=== PATIENT | male | born 2005 | race Caucasian/White ===

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

== ENCOUNTER 2024-10-26 13:03 | Emergency (ER) | payer BC ==
[~2024-10-26] VITALS: Ht 165.1 cm; Wt 68.0 kg
[2024-10-26] MEDS ORDERED: KETOROLAC TROMETHAMINE 30 MG VIAL ONE ×2 (13:59→17:26)
[2024-10-26] MEDS ORDERED: ONDANSETRON HCL 2 MG/ML VIAL IV SCH (13:59)
[2024-10-26] MEDS ORDERED: FAMOTIDINE/PF 20 MG/2 ML VIAL IV SCH (13:59)
[2024-10-26] MEDS ORDERED: ONDANSETRON HCL 2 MG/ML VIAL ONE ×2 (13:59→17:40)
[2024-10-26] MEDS ORDERED: KETOROLAC TROMETHAMINE 15 MG VIAL IU ONE (14:00)
[2024-10-26] MEDS ORDERED: DEXTROSE 5 % AND 0.9 % NACL 1,000 ML IV SCH (14:00)
[2024-10-26] MEDS ORDERED: FAMOTIDINE/PF 20 MG/2 ML VIAL ONE (14:00)
[2024-10-26] MEDS ORDERED: 0.9 % SODIUM CHLORIDE 1,000 ML IV SCH (14:00)
[2024-10-26 14:26] LABS: BASO % 0.4 % (0.1-1.2); EOS # 0.03 (0.04-0.54); EOS % 0.3 % (0.7-7.0); HEMATOCRIT 41.1 % (40.1-51.0); HEMOGLOBIN 14.2 g/dL (13.7-17.5); LYMPH # 0.56 (1.18-3.74); LYMPH % 5.1 % (19.3-53.1); MONO # 1.58 (0.24-0.82); NEUT # 8.57 (1.56-6.13); NEUT % 78.5 % (34.0-71.1); PLATELET COUNT 195 K/uL (163-369); RED BLOOD COUNT 5.07 M/uL (4.63-6.08); RED CELL DISTRIBUTION WIDTH 12.2 % (11.6-14.4)
[2024-10-26 14:34] LABS: ERYTHROCYTE SEDIMENTATION RATE 11 mm/hr (0-15); MONO % 14.5 % (4.7-12.5)
[2024-10-26 14:51] LABS: BILIRUBIN TOTAL 0.54 mg/dL (0.3-1.2); C-REACTIVE PROTEIN 6.21 MG/DL (0.00-0.29); CALCIUM 8.9 mg/dL (8.5-10.1); CREATININE SERUM 1.04 mg/dL (0.70-1.30); POTASSIUM 3.73 mEq/L (3.5-5.1)
[2024-10-26 15:28] LABS: COVID-19 AG NEGATIVE (NEGATIVE)
[2024-10-26 15:38] LABS: INFLUENZA A AG NEGATIVE (NEGATIVE); INFLUENZA B AG NEGATIVE (NEGATIVE)
[2024-10-26 16:48] LABS: URINE APPEARANCE Cloudy; URINE BILIRRUBIN Negative (NEGATIVE); URINE BLOOD Negative; URINE COLOR Yellow; URINE GLUCOSE Negative (NEGATIVE); URINE KETONE Trace (NEGATIVE); URINE LEUKOCYTE Negative; URINE NITRATE Negative; URINE PROTEIN 30 (NEGATIVE)
[2024-10-26 16:52] LABS: URINE EPITHELIAL CELLS 8.8 uL (0.0-38.8); URINE RBC 5.5 uL (0.0-20.8); URINE WBC 3.9 uL (0.0-23.2)
[2024-10-26 16:59] LABS: URINE CAST 0.73 uL (0.0-1.40)
[2024-10-26] MEDS ORDERED: DEXAMETHASONE SODIUM PHOSP/PF 10 MG/ML VIAL IV STA (17:25)
[2024-10-26] MEDS ORDERED: ORPHENADRINE CITRATE 30 MG/ML AMPUL IV STA (17:25)
[2024-10-26] MEDS ORDERED: ORPHENADRINE CITRATE 30 MG/ML AMPUL ONE (17:26)
[2024-10-26] MEDS ORDERED: DEXAMETHASONE SODIUM PHOSPHATE 4 MG/ML VIAL ONE (17:26)
[2024-10-26 17:44] LABS: COCAINE NEGATIVE (NEGATIVE); METHADONE NEGATIVE (NEGATIVE); OPIATES NEGATIVE (NEGATIVE); THC ( Cannabinoids) NEGATIVE (NEGATIVE)
[2024-10-26] MEDS ORDERED: ONDANSETRON HCL 2 MG/ML VIAL IV ONE (18:00)
[2024-10-26] MEDS ORDERED: KETOROLAC TROMETHAMINE 30 MG VIAL IV ONE (18:00)
== END 2024-10-26 20:20 | disposition home or self-care (01) ==
LOC: ER 13:03 → EMR PED 13:52 → ER 13:52 → EMR PED 20:20
PROVIDERS: General Practice
DX: R11.10 Vomiting, unspecified (principal); R51.9 Headache, unspecified; E03.8 Other specified hypothyroidism; Z20.822 Contact with and (suspected) exposure to COVID-19